=== PATIENT | female | born 1950 | race African-American/Black ===

== ENCOUNTER 2016-11-23 11:31 | Emergency (ER) | payer OTHER ==
[2016-11-23] MEDS ORDERED: IPRATRPIUM/ALBUTEROL 0.5/2.5MG 3 ML NEBU. NEB ONE ×2 (12:30→13:45)
--- NOTE | 2016-11-23 12:33 | EKG ---
[facility] [address] [place] [address] Test Date: 2016-11-23 Test Time: 11:41:44 Pat Name: DAMIAN YUAN Department: Room: Gender: Female Academic Specialist: : [id number] Requested By: SANGEETHA LIMON Order Number: [id number] Reading MD: Emelia Mercado Measurements Intervals [place] Rate: 74 P: 36 RI: 176 QRS: -16 QRSD: 92 T: 22 QT: 384 QTc: 431 Interpretive Statements SINUS RHYTHM LEFTWARD AXIS QRS(T) CONTOUR ABNORMALITY CONSISTENT WITH SEPTAL INFARCT AGE UNDETERMINED RI6.01 Unconfirmed report No previous ECG available for comparison Electronically Signed On 11-26-2016 15:49:52 [employer]ACH[employer]ARNING DISABLED by Emelia Mercdao
--- NOTE | 2016-11-23 12:38 | RAD ---
Indication shortness of breath. A single view of the chest was obtained. No prior imaging of the chest is available. The heart and pulmonary vessels are normal. The lungs are clear. There is a calcified granuloma at the left lung base. There is no pleural fluid or pneumothorax. Left PICC line with its tip in the proximal SVC is noted. IMPRESSION: No acute or focal process seen in the chest
[2016-11-23] MEDS ORDERED: methylPREDNISolone SOD SUCC PF 125 MG/2 ML VIAL. IV ONE (12:45)
--- NOTE | 2016-11-23 12:45 | PHYS DOC ---
Past Medical History Past Medical History: Cancer, CVA, DVT, Hypertension Additional Past Medical Histor: CERVICAL CA, ACUTE KIDNEY FAILURE Past Surgical History: Other Additional Past Surgical Histo: UNK Alcohol Use: None Drug Use: None Adult General Chief Complaint Chief Complaint: SHORTNESS OF BREATH HPI HPI This is a 66-year-old female who's had ongoing cough and shortness of breath for the last week that worsened today. Patient is on nicotine patch states her last cigarette was 3 weeks ago. She denies any history of COPD or asthma. Patient did get a breathing treatment earlier today at a health center. She states this did not significantly improve her symptoms and she presents now for evaluation. She denies any chest pain. At this time, the patient is in no acute distress saturating near 100% on room air speaking in complete sentences. Review of Systems Review of Systems Constitutional: Denies fever or chills [] Eyes: Denies change in visual acuity, redness, or eye pain [] HENT: Denies nasal congestion or sore throat [] Respiratory: Has cough, has shortness of breath [] Cardiovascular: No additional information not addressed in HPI [] GI: Denies abdominal pain, nausea, vomiting, bloody stools or diarrhea [] : Denies dysuria or hematuria [] Musculoskeletal: Denies back pain or joint pain [] Integument: Denies rash or skin lesions [] Neurologic: Denies headache, focal weakness or sensory changes [] Endocrine: Denies polyuria or polydipsia [] Current Medications Current Medications Current Medications Medications (Trade) Dose Ordered Sig/Devang Start Time Stop Time Status Last Admin Dose Admin Albuterol/ Ipratropium (Duoneb) 3 ml 1X ONCE 11/23/16 13:45 11/23/16 13:46 DC 11/23/16 13:58 3 ML Methylprednisolone Sodium Succinate (Solu-Medrol 125mg Vial) 125 mg 1X ONCE 11/23/16 12:45 11/23/16 12:46 DC 11/23/16 13:34 125 MG Allergies Allergies Allergies Coded Allergies Type Severity Reaction Last Updated Verified No Known Drug Allergies 11/23/16 No Physical Exam Physical Exam Constitutional: Well developed, well nourished, no acute distress, non-toxic appearance. [] HENT: Normocephalic, atraumatic, bilateral external ears normal, oropharynx moist, no oral exudates, nose normal. [] Eyes: PERRLA, EOMI, conjunctiva normal, no discharge. [] Neck: Normal range of motion, no tenderness, supple, no stridor. [] Cardiovascular:Heart rate regular rhythm, no murmur [] Lungs & Thorax: Bilateral breath sounds clear to auscultation although slightly diminished, no acute respiratory distress [] Abdomen: Bowel sounds normal, soft, no tenderness, no masses, no pulsatile masses. [] Skin: Warm, dry, no erythema, no rash. [] Back: No tenderness, no CVA tenderness. [] Extremities: No tenderness, no cyanosis, no clubbing, ROM intact, no edema. [] Neurologic: Alert and oriented X 3, normal motor function, normal sensory function, no focal deficits noted. [] Psychologic: Affect normal, judgement normal, mood normal. [] Current Patient Data Vital Signs Vital Signs Date Time Temp Pulse Resp B/P Pulse Ox O2 Delivery O2 Flow Rate FiO2 11/23/16 14:00 84 18 135/71 94 Room Air 11/23/16 11:31 97.8 97.8 Lab Values Laboratory Tests Test 11/23/16 13:08 White Blood Count 12.4x10^3/uL (4.0-11.0) H Red Blood Count 4.91x10^6/uL (3.50-5.40) Hemoglobin 13.9g/dL (12.0-15.5) Hematocrit 42.6% (36.0-47.0) Mean Corpuscular Volume 87fL (79-100) Mean Corpuscular Hemoglobin 28pg (25-35) Mean Corpuscular Hemoglobin Concent 33g/dL (31-37) Red Cell Distribution Width 13.8% (11.5-14.5) Platelet Count 231x10^3/uL (140-400) Neutrophils (%) (Auto) 79% (31-73) H Lymphocytes (%) (Auto) 13% (24-48) L Monocytes (%) (Auto) 6% (0-9) Eosinophils (%) (Auto) 1% (0-3) Basophils (%) (Auto) 1% (0-3) Neutrophils # (Auto) 9.8x10^3uL (1.8-7.7) H Lymphocytes # (Auto) 1.7x10^3/uL (1.0-4.8) Monocytes # (Auto) 0.7x10^3/uL (0.0-1.1) Eosinophils # (Auto) 0.2x10^3/uL (0.0-0.7) Basophils # (Auto) 0.1x10^3/uL (0.0-0.2) Sodium Level 140mmol/L (136-145) Potassium Level 4.4mmol/L (3.5-5.1) Chloride Level 101mmol/L (98-107) Carbon Dioxide Level 28mmol/L (21-32) Anion Gap 11 (6-14) Blood Urea Nitrogen 24mg/dL (7-20) H Creatinine 1.7mg/dL (0.6-1.0) H Estimated GFR (Cockcroft-Gault) 36.4 Glucose Level 114mg/dL (70-99) H Calcium Level 9.8mg/dL (8.5-10.1) Troponin I Quantitative < 0.017ng/mL (0.000-0.055) Laboratory Tests 11/23/16 13:08 Laboratory Tests 11/23/16 13:08 EKG EKG This is a sinus rhythm with a rate of approximately 74 bpm. There are no acute ST findings. There are no acute signs of ischemia on this EKG. Intervals appear normal. Radiology/Procedures Radiology/Procedures Portable one view of the chest as interpreted by me and the radiologist does not reveal an acute cardiopulmonary process Course & Med Decision Making Course & Med Decision Making Pertinent Labs and Imaging studies reviewed. (See chart for details) This 66-year-old female with ongoing cough and shortness of breath will be given a breathing treatment and steroids. A chest x-ray at this time does not reveal any acute cardiopulmonary process and her EKG is also nonrevealing. I will obtain further laboratory workup and reassess the patient. I believe her symptoms are likely related to an ongoing bronchitis. She'll likely be able to be discharged home with a course of steroids and close primary care follow-up. Upon my reassessment, the patient has received multiple breathing treatments and a dose of IV steroids. I will be discharging her home with a course of prednisone, Tessalon Perles, albuterol inhaler and she is told to continue receiving breathing treatments at her snf facility every 4-6 hours. I believe her symptoms are likely related to bronchitis in light of her negative chest x-ray and laboratory workup. She left the department feeling much improved. Valerie Disclaimer Valerie Disclaimer This electronic medical record was generated, in whole or in part, using a voice recognition dictation system. Departure Departure Impression: Primary Impression: Acute bronchitis Additional Impression: Cough Disposition: 01 HOME, SELF-CARE Admitting Physician: Other Condition: STABLE Patient Instructions: Acute Bronchitis, [id number] Additional Instructions: Please follow up closely with your primary doctor in the next 2-3 days for your cough and congestion. Use your inhaler every 4-6 hours as needed. Take your medication as prescribed. Return to the ER if you develop any worsening of your symptoms. Scripts Benzonatate (Tessalon Perle)100 Mg [id number] Mg PO TID PRN COUGH #15 CAP Prov:SANGEETHA LIMON DO 11/23/16 Prednisone 50 Mg Tablet1 Tab PO DAILY #5 TAB Prov:SANGEETHA LIMON DO 11/23/16 Albuterol Sulfate (Proair Hfa Inhaler)8.5 Gm [id number].[id number] Puff INH PRN Q6HRS PRN SHORTNESS OF BREATH #1 INHALER Ref 0 Prov:SANGEETHA LIMON DO 11/23/16 Ibuprofen 800 Mg [id number] Mg PO PRN Q6HRS PRN INFLAMMATION #20 TAB Prov:SANGEETHA LIMON DO 11/23/16 Problem Qualifiers SANGEETHA LIMON DO Nov 23, 2016 12:45
[2016-11-23 13:26] LABS: BASO # 0.1 x10^3/uL (0.0-0.2); BASO % 1 % (0-3); EOS % 1 % (0-3); HEMATOCRIT 42.6 % (36.0-47.0); HEMOGLOBIN 13.9 g/dL (12.0-15.5); LYMPH # 1.7 x10^3/uL (1.0-4.8); LYMPH % 13 % (24-48); MEAN CORPUSCULAR HEMOGLOBIN 28 pg (25-35); MEAN CORPUSCULAR HGB CONC 33 g/dL (31-37); MEAN CORPUSCULAR VOLUME 87 fL (79-100); MONO % 6 % (0-9); NEUT % 79 % (31-73); PLATELET COUNT 231 x10^3/uL (140-400); RED BLOOD COUNT 4.91 x10^6/uL (3.50-5.40); RED CELL DISTRIBUTION WIDTH 13.8 % (11.5-14.5); WHITE BLOOD COUNT 12.4 x10^3/uL (4.0-11.0)
[2016-11-23 13:38] LABS: CALCIUM 9.8 mg/dL (8.5-10.1); CREATININE 1.7 mg/dL (0.6-1.0); GFR 36.4; POTASSIUM 4.4 mmol/L (3.5-5.1)
[2016-11-23 14:00] VITALS: BP 135/71
[2016-11-23] MEDS ORDERED: IBUP-1060 PO (14:12)
[2016-11-23] MEDS ORDERED: PRED50TA PO (14:12)
[2016-11-23] MEDS ORDERED: PROAIR HFA8.5 GM INH (14:12)
[2016-11-23] MEDS ORDERED: BENZ100C PO (14:12)
== END 2016-11-23 16:21 | disposition home or self-care (01) ==
LOC: ER 11:31
DX: J20.9 Acute bronchitis, unspecified (principal); F17.210 Nicotine dependence, cigarettes, uncomplicated; I10 Essential (primary) hypertension; Z86.73 Personal history of transient ischemic attack (TIA), and cerebral infarction without residual deficits; Z86.718 Personal history of other venous thrombosis and embolism
CPT/HCPCS: 36415; 71010; 80048; 84484; 85027; 93005; 94250; 94640; 96374; 99285; J2930; J7620